=== PATIENT | male | born 1935 | race Caucasian/White ===

== ENCOUNTER 2021-12-18 08:01 | Inpatient (IN) | payer MEDICARE, BC ==
[~2021-12-18] VITALS: Ht 160 cm; Wt 72.6 kg
[2021-12-18 08:50] LABS: BASOPHILS ABSOLUTE AUTO 0.07 K/mm3 (0.00-0.23); BASOPHILS PERCENT AUTO 1 % (0-2); EOSINOPHILS ABSOLUTE AUTO 0.05 K/mm3 (0.00-0.68); EOSINOPHILS PERCENT AUTO 0 % (0-6); Hematocrit 37.8 % (37.0-53.0); Hemoglobin 12.2 g/dL (13.5-17.5); IMMATURE GRAN ABSOLUTE AUTO 0.38 K/mm3 (0.00-0.10); IMMATURE GRAN PERCENT AUTO 3 % (0-1); LYMPHOCYTES PERCENT AUTO 22 % (21-46); MONOCYTES ABSOLUTE AUTO 1.86 K/mm3 (0.16-1.47); MONOCYTES PERCENT AUTO 13 % (4-13); Mean Corpuscular HGB 30.2 pg (26.0-34.0); Mean Corpuscular HGB Conc 32.3 g/dL (31.5-36.5); Mean Corpuscular Volume 94 fL (80-100); Mean Platelet Volume 10.1 fL (9.1-12.4); NEUTROPHILS ABSOLUTE AUTO 8.97 K/mm3 (1.96-9.15); NEUTROPHILS PERCENT AUTO 62 % (41-73); Platelet Count 313 K/mm3 (150-400); RDW Coefficient Variation 13.2 % (11.7-14.2); RDW Standard Deviation 45.7 fL (35.1-46.3); Red Blood Cell Count 4.04 M/mm3 (4.30-5.90); White Blood Cell Count 14.43 K/mm3 (4.00-11.30)
[2021-12-18 09:06] LABS: Albumin, Blood 2.5 g/dL (3.4-5.0); Albumin/Globulin Ratio 0.6 (0.8-1.8); Bilirubin, Total 0.6 mg/dL (0.1-1.0); Bun/Creatinine Ratio 21.5 (12.0-20.0); Calcium, Blood 8.7 mg/dL (8.5-10.1); Creatinine, Blood 0.98 mg/dL (0.60-1.20); Globulin, Blood 4.3 g/dL (2.2-4.0); Potassium, Blood 3.9 mmol/L (3.5-5.5); Total Protein, Blood 6.8 g/dL (6.4-8.2)
[2021-12-18 09:43] LABS: Influenza A, PCR NEGATIVE (NEGATIVE); Influenza B, PCR NEGATIVE (NEGATIVE); Resp Syncytial Virus, PCR NEGATIVE (NEGATIVE); SARS-Cov-2 (COVID-19) PCR, MMC NEGATIVE (NEGATIVE)
[2021-12-18] MEDS ORDERED: FUROSEMIDE20 MG PO (10:09)
[2021-12-18] MEDS ORDERED: POTA20LUD PO (10:10)
[2021-12-18] MEDS ORDERED: LISINOPRIL 5 MG (10:10)
[2021-12-18] MEDS ORDERED: ALLO300 PO (10:11)
[2021-12-18] MEDS ORDERED: PRED5 PO (10:11)
[2021-12-18] MEDS ORDERED: ZYTIGA500 MG PO (10:12)
[2021-12-18] MEDS ORDERED: HYDROCO (10:12)
[2021-12-18] MEDS ORDERED: APAP (10:12)
[2021-12-18] MEDS ORDERED: LATANOPROST2.5 M3 BOTHEYES (10:13)
[2021-12-18 11:53] LABS: Glucose, Body Fluid 110 mg/dL; Lactate Dehydrogenase, Body Fl 322 U/L; Protein, Body Fluid 4.9 g/dL
[2021-12-18 12:06] LABS: Appearance, Body Fluid Bloody (Clear); Color, Body Fluid Red (None-Yellow)
[2021-12-18 12:07] LABS: RBC Count, Body Fluid 60000 /mm3 (0-0)
[2021-12-18 12:08] LABS: Body Fluid WBC Count 1650 /mm3 (0-999)
[2021-12-18 12:52] LABS: Total Cell Count, Body Fluid 100
--- NOTE | 2021-12-18 14:00 | NUR ---
PT ARRIVED TO MEDICAL FLOOR FROM EMERGENCY ROOM ON AN ER [facility] ACCOMPANIED BY AND FAMILY FRIEND. PT WAS TRANSFERRED FROM [facility] TO MEDICAL BED WITH SLIDE SHEET AND ASSISTANCE OF THREE STAFF. HE IS WEARING 2LPM OXYGEN VIA NASAL CANULA. PT IS A&O X4. FAMILY RECENTLY MOVED FROM [place] ABOUT TWO MONTHS AGO TO BE WITH THEIR SON KUN, WHO LIVES NEARBY. THEY LIVE INDEPENDENTLY. PT WAS DX WITH PROSTATE CANCER IN 2018. PRIOR TO THAT, HE HAD NOT BEEN HOSPITALIZED SINCE THE 1970'S WHEN HE HAD HIS GALL BLADDER REMOVED. 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 HE LIVES WITH HIS KEVIN IN THEIR OWN HOME IN [place]. HE IS INCONTINENT IN ATTENDS. REPORTS INCREASING WEAKNESS,AND DYSPNEA THE PAST FEW DAYS. HE HAS ALWAYS BEEN AN ACTIVE MAN, AND A NICK IN [place]. PT IS PLEASANT, FOLLOWS DIRECTIONS. FAMILY ORIENTED TO ROOM, AND INSTRUCTED TO USE CALL LIGHT FOR SAFETY TO REDUCE FALL RISK. WILL CONTINUE TO MONITOR.
--- NOTE | 2021-12-18 15:15 | NUR ---
RN PLACED PHONE CALL TO DR. DAMICO - THERE WERE ER ORDERS FOR NORMAL SALINE THAT WERE NOT RUNNING WHEN PT ARRIVED TO MEDICAL FLOOR. DR. DAMICO AGREES TO D/C FLUID ORDERS. DR. DAMICO WITH NO OTHER ORDERS AT THIS TIME.
--- NOTE | 2021-12-18 15:44 | NUR ---
RN PAGED RT REGARDING PULSE OXIMETRY ORDERS.
--- NOTE | 2021-12-18 19:18 | NUR ---
PT'S AT BEDSIDE. PT SLEPT MOST OF THE SHIFT. HIS KEVIN ASSISTED HIM TO EAT DINNER. HE IS INCONTINENT IN ATTENDS. REPORTS THAT PAIN IS IMPROVING FROM THORACENTESIS EARLIER, RN EDUCATED TO CALL FOR PAIN MEDICATION IF HE NEEDS IT USING THE CALL LIGHT. SON KUN AT BEDSIDE TO CHECK IN. 2LPM OXYGEN VIA NASAL CANULA. 18 GAUGE IN THE LEFT AC. TELEMETRY ON. RT HAS BEEN PAGED TO SET UP PULSE OXIMETRY. GAVE REPORT TO ONCOMING RN.
--- NOTE | 2021-12-19 04:30 | NUR ---
SHIFT UNREMARKABLE. CLIENT HAS SLEPT THROUGH SHIFT. EVENING MEDICATIONS PASSED WITHOUT DIFFICULTY AND CLIENT REPORTS HE HAS FELT MUCH BETTER SINCE THORACENTESIS WAS PERFORMED. O2 SUPPLEMENTATION RUNNING VIA NC. DOCTORS NOTE INDICATES SUSPECTED DISCHARGE THIS MORNING 12/19. CLIENT CONDITION UNCHANGED OTHERWISE. CALL LIGHT LEFT WITHIN REACH.
[2021-12-19 05:12] LABS: BASOPHILS ABSOLUTE AUTO 0.03 K/mm3 (0.00-0.23); BASOPHILS PERCENT AUTO 0 % (0-2); EOSINOPHILS PERCENT AUTO 0 % (0-6); Hematocrit 36.9 % (37.0-53.0); Hemoglobin 11.7 g/dL (13.5-17.5); IMMATURE GRAN ABSOLUTE AUTO 0.33 K/mm3 (0.00-0.10); IMMATURE GRAN PERCENT AUTO 2 % (0-1); LYMPHOCYTES ABSOLUTE AUTO 1.41 K/mm3 (0.84-5.20); LYMPHOCYTES PERCENT AUTO 8 % (21-46); MONOCYTES ABSOLUTE AUTO 1.72 K/mm3 (0.16-1.47); MONOCYTES PERCENT AUTO 10 % (4-13); Mean Corpuscular HGB 29.6 pg (26.0-34.0); Mean Corpuscular HGB Conc 31.7 g/dL (31.5-36.5); Mean Corpuscular Volume 93 fL (80-100); Mean Platelet Volume 10.4 fL (9.1-12.4); NEUTROPHILS ABSOLUTE AUTO 14.04 K/mm3 (1.96-9.15); NEUTROPHILS PERCENT AUTO 80 % (41-73); Platelet Count 318 K/mm3 (150-400); RDW Coefficient Variation 13.2 % (11.7-14.2); RDW Standard Deviation 44.8 fL (35.1-46.3); Red Blood Cell Count 3.95 M/mm3 (4.30-5.90); White Blood Cell Count 17.53 K/mm3 (4.00-11.30)
[2021-12-19 05:31] LABS: Bun/Creatinine Ratio 25.2 (12.0-20.0); Calcium, Blood 8.2 mg/dL (8.5-10.1); Creatinine, Blood 0.91 mg/dL (0.60-1.20); Magnesium, Blood 2.5 mg/dL (1.6-2.4)
--- NOTE | 2021-12-19 11:50 | NUR ---
Upon receiving a referral for spiritual care, I visit pt. Pt is lying in bed and alert. Pt's spouse, Jeannie is bedside. They tell me about pt's improvement and the plan to d/c to home today. I provide a calming presence and a blessing. Pt and Jeannie responds well and show signs of an elevated mood. I will continue to remain available.
[2021-12-19] MEDS ORDERED: Norco 5-325 Ta1 EACH PO (13:05)
[2021-12-19] MEDS ORDERED: POTA10T PO (13:06)
[2021-12-19] MEDS ORDERED: LISI5 PO (13:08)
--- NOTE | 2021-12-19 18:36 | NUR ---
SHIFT SUMMARY PATIENT ALERT AND ORIENTED BUT [place]. REQUIRES 2L O2 VIA NC AND 4L WHEN EXERTING. SEVERE VERTIGO WHEN CHANGES POSITION, REQUIRES SEVERAL MINUTES TO ACCLIMATE TO SITTING UP AND STANDING UP. SBA TO AMBULATE WITH FWW AND GAIT BELT TO TOILET. INCONTINENT OF URINE, FREQUENT WET ATTENDS. PLAN FOR DISCHARGE HOME IN AM AFTER EVAL BY PHYSICAL THERAPY FOR HOME NEEDS. WILL REQUIRE O2 AT HOME WELL NURSING AND PT. SPOUSE ATTENTIVE AT BEDSIDE. TOLERATING REGULAR DIET AND LIQUIDS.
--- NOTE | 2021-12-20 04:18 | NUR ---
SHIFT SUMMARY ADMITTED FOR RESPIRATORY FAILURE/HYPOXIA. DNR CODE. PLAN IS FOR DC HOME W/HH TO FAMILY. HOME O2 EVAL IS COMPLETED ON PREVIOUS SHIFT. HX OF PROSTATE CANCER W/METS. IS AT BEDSIDE IN ROOM. HX OF POSITIONAL VERTIGO. RIGHT SIDED PLEURAL EFFUSION FOUND IN ER, THORACENTESIS PERFORMED. HE IS A&O X3, [place]. 2 LPM O2 AT REST, 4 LPM O2 W/EXERTION
--- NOTE | 2021-12-20 18:59 | NUR ---
DISCHARGE SUMMARY PATIENT ALERT AND ORIENTED. TOLERATING DIET AND LIQUIDS. INCONTINENT IN ATTENDS. SBA WITH FWW TO TRANSFER TO CHAIR. O2 VIA NC AT 2L. [facility] SET UP HOME O2 AND PROVIDED NEW WHEELCHAIR. DISCHARGE INSTRUCTIONS GIVEN TO FAMILY. IV DC'D WNL. PATIENT LEFT UNIT AT 1845.
== END 2021-12-20 18:52 | disposition home health service (06) | DRG 189 ==
LOC: ER 08:01 → MEDS 08:02
PROVIDERS: Emergency Medicine; ADMIT Student in an Organized Health Care Education/Training Program
PROC: 0W993ZZ Drainage of Right Pleural Cavity, Percutaneous Approach (ICD-10-PCS; principal; 2021-12-19)
DX: J96.01 Acute respiratory failure with hypoxia (principal); J93.83 Other pneumothorax; J91.0 Malignant pleural effusion; C61 Malignant neoplasm of prostate; Z20.822 Contact with and (suspected) exposure to COVID-19; Z66 Do not resuscitate; I10 Essential (primary) hypertension; Z90.49 Acquired absence of other specified parts of digestive tract; Z79.52 Long term (current) use of systemic steroids; Z79.899 Other long term (current) drug therapy
CPT/HCPCS: 0241U; 32555; 36415; 71045; 80048; 80053; 82945; 83615; 83735; 83880; 84157; 84484; 85025; 87070; 87075; 87205; 88108; 88305; 88341; 88342; 89051; 93005; 93010; 94640; 94664; 94760; 94761; 94762; 96372; 96374-59; 96375-59; 97110; 97116; 97162; 97166; 97530; 99285-25; A9270; G0378; J1644; J2405; J2930; J3010; J7030; J7512

== ENCOUNTER 2021-12-30 12:19 | Emergency (ER) | payer MEDICARE, BC ==
[~2021-12-30] VITALS: Ht 160 cm; Wt 68.0 kg
[~2021-12-30 12:19] MED LIST: ALLO300 PO; APAP; FUROSEMIDE20 MG PO; HYDROCO; LATANOPROST2.5 M3 BOTHEYES; LISI5 PO; LISINOPRIL 5 MG; Norco 5-325 Ta1 EACH PO; POTA10T PO; POTA20LUD PO; PRED5 PO; ZYTIGA500 MG PO
[2021-12-30 12:48] LABS: Hematocrit 35.4 % (37.0-53.0); Hemoglobin 11.2 g/dL (13.5-17.5); Mean Corpuscular HGB 29.8 pg (26.0-34.0); Mean Corpuscular HGB Conc 31.6 g/dL (31.5-36.5); Mean Corpuscular Volume 94 fL (80-100); Mean Platelet Volume 10.3 fL (9.1-12.4); Platelet Count 255 K/mm3 (150-400); RDW Coefficient Variation 13.2 % (11.7-14.2); RDW Standard Deviation 45.1 fL (35.1-46.3); Red Blood Cell Count 3.76 M/mm3 (4.30-5.90); White Blood Cell Count 35.17 K/mm3 (4.00-11.30)
[2021-12-30 13:15] LABS: Albumin, Blood 2.2 g/dL (3.4-5.0); Albumin/Globulin Ratio 0.5 (0.8-1.8); Bilirubin, Total 0.5 mg/dL (0.1-1.0); Bun/Creatinine Ratio 21.5 (12.0-20.0); Calcium, Blood 8.3 mg/dL (8.5-10.1); Creatinine, Blood 0.84 mg/dL (0.60-1.20); Globulin, Blood 4.2 g/dL (2.2-4.0); Potassium, Blood 3.9 mmol/L (3.5-5.5); Total Protein, Blood 6.4 g/dL (6.4-8.2)
[2021-12-30 13:20] LABS: BAND PERCENT MAN 13 % (0-8); BASOPHILS PERCENT MAN 0 % (0-2); EOSINOPHILS PERCENT MAN 0 % (0-6); LYMPHOCYTES PERCENT MAN 4 % (21-46); METAMYELOCYTE PERCENT MAN 2 % (0-0); MONOCYTES PERCENT MAN 4 % (4-13); MYELOCYTE ABSOLUTE MAN 0.35 K/mm3 (0.00-0.00); MYELOCYTE PERCENT MAN 1 % (0-0); SEG NEUTROPHILS PERCENT MAN 76 % (41-73); TOTAL CELLS COUNTED 100
[2021-12-30 13:50] LABS: Source, Urine Clean Catch
[2021-12-30 13:57] LABS: Appearance, Urine Clear (Clear); Bilirubin, Urine Neg (Neg); Blood, Urine Neg (Neg); Color, Urine Yellow (P-Yellow); Glucose Qualitative, Urine Neg (Neg); Ketones, Urine Neg (Neg); Leukocyte Esterase, Urine 1+ (Neg); Nitrite, Urine Neg (Neg); Protein, Urine 2+ (Neg); Specific Gravity, Urine 1.015 (1.003-1.022); Urobilinogen, Urine 1+ (Normal)
[2021-12-30 14:11] LABS: International Normalized Ratio 0.98; Prothrombin Time Results 10.3 Sec (9.7-11.5)
[2021-12-30 14:20] LABS: Bacteria Few /hpf; Mucus Light (0-Heavy); Red Blood Cells, Urine 0-2 /hpf (0-2); Squamous Epithelial Cells Not Seen /hpf (Few)
[2021-12-30 14:35] LABS: Influenza A, PCR NEGATIVE (NEGATIVE); Influenza B, PCR NEGATIVE (NEGATIVE); Resp Syncytial Virus, PCR NEGATIVE (NEGATIVE); SARS-Cov-2 (COVID-19) PCR, MMC NEGATIVE (NEGATIVE)
== END 2021-12-30 18:13 | disposition home or self-care (01) ==
LOC: ER 12:19
PROVIDERS: Emergency Medicine
DX: J90 Pleural effusion, not elsewhere classified (principal); D72.829 Elevated white blood cell count, unspecified; R50.9 Fever, unspecified; J93.9 Pneumothorax, unspecified; Z20.822 Contact with and (suspected) exposure to COVID-19; Z79.899 Other long term (current) drug therapy
CPT/HCPCS: 0241U; 32555; 36415; 71045; 80053; 81001; 85025; 85610; 85730

== ENCOUNTER 2022-01-07 18:28 | Inpatient (IN) | payer MEDICARE, BC ==
[~2022-01-07] VITALS: Ht 162.6 cm; Wt 72.1 kg
[2022-01-07 19:20] LABS: Hematocrit 33.3 % (37.0-53.0); Hemoglobin 10.5 g/dL (13.5-17.5); Mean Corpuscular HGB 29.3 pg (26.0-34.0); Mean Corpuscular HGB Conc 31.5 g/dL (31.5-36.5); Mean Corpuscular Volume 93 fL (80-100); Mean Platelet Volume 10.2 fL (9.1-12.4); NRBC ABSOLUTE 0.09 K/mm3 (0.00-0.02); NRBC Auto 0.2 /100 WBC (0.0-0.2); Platelet Count 221 K/mm3 (150-400); RDW Coefficient Variation 13.7 % (11.7-14.2); RDW Standard Deviation 45.3 fL (35.1-46.3); Red Blood Cell Count 3.58 M/mm3 (4.30-5.90); White Blood Cell Count 38.18 K/mm3 (4.00-11.30)
[2022-01-07 19:49] LABS: Albumin, Blood 2.5 g/dL (3.4-5.0); Albumin/Globulin Ratio 0.6 (0.8-1.8); Bilirubin, Total 0.3 mg/dL (0.1-1.0); Bun/Creatinine Ratio 13.6 (12.0-20.0); Calcium, Blood 8.8 mg/dL (8.5-10.1); Creatinine, Blood 0.88 mg/dL (0.60-1.20); Globulin, Blood 4.2 g/dL (2.2-4.0); Potassium, Blood 4.7 mmol/L (3.5-5.5); Total Protein, Blood 6.7 g/dL (6.4-8.2)
[2022-01-07 19:57] LABS: BAND PERCENT MAN 4 % (0-8); BASOPHILS PERCENT MAN 0 % (0-2); EOSINOPHILS ABSOLUTE MAN 0.38 K/mm3 (0.00-0.68); EOSINOPHILS PERCENT MAN 1 % (0-6); LYMPHOCYTES % ATYPICAL MANUAL 1 % (0-0); LYMPHOCYTES ABSOLUTE MAN 3.81 K/mm3 (0.84-5.20); LYMPHOCYTES PERCENT MAN 9 % (21-46); METAMYELOCYTE ABSOLUTE MAN 0.76 K/mm3 (0.00-0.00); METAMYELOCYTE PERCENT MAN 2 % (0-0); MONOCYTES ABSOLUTE MAN 1.52 K/mm3 (0.16-1.47); MONOCYTES PERCENT MAN 4 % (4-13); MYELOCYTE ABSOLUTE MAN 3.05 K/mm3 (0.00-0.00); MYELOCYTE PERCENT MAN 8 % (0-0); NEUTROPHILS ABSOLUTE MAN 28.63 K/mm3 (1.96-9.15); SEG NEUTROPHILS PERCENT MAN 71 % (41-73); TOTAL CELLS COUNTED 100
[2022-01-07] MEDS ORDERED: BENZ100A PO (23:10)
[2022-01-07] MEDS ORDERED: CEFD300 PO (23:14)
--- NOTE | 2022-01-08 00:33 | NUR ---
PATIENT ADMITTED TO THE UNIT JUST BEFORE MIDNIGHT. AND SON ARE AT BEDSIDE AND HELP TO PROVIDE HX. STATES PATIENT HEALTHY UP TO TIME HE DEVELOPED PROSTATE CANCER NOW METS TO THE BONE, LIVER AND LUNG. IN THE LAST MONTH AND HALF HE HAS DEVELOPED PLEURAL EFFUSION THAT HAS NEEDED TO BE TAPPED TWICE NOW. LAST THORACENTESIS WAS 12/30/21 AT WHICH HE DEVELOPED A DPNEUMOTHORAX NOW RESOLVED. FAMILY REPORTS HE HAS BECOME INCREASING CONFUSED WELL, AND DOES NOT REMEMBER MINUTES LATER. HIS ABILITY TO WALK HAS BECOME LIMITED TO BEDREST OR JUST MINIMAL TRANSFERS. HE HAS BECOME INCONTIENT OF URINE AND STOOL. INTAKE HAS DIMINISHED TO FEW BITES HERE AND THERE BUT CONSTANTLY STATES HE IS HUNGRY. IN THE LAST 24 HOURS HE HAS BECOME INCREASED SOB AT WHICH FAMILY GOT CONCERNED THEREFORE BROUGHT HIM IN. LS COARSE CRACKLES ON THE RIGHT, DIM ON THE LEFT, SATS >92% ON 3L NC, COUGH IS NON-PRODUCTIVE. HR 60-70'S OCCATIONALLY WILL BE TACHY WITH MOVMEMENT OR COUGH. 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 DENIES CHEST PAIN OR DISCOMFORT. ABD DISTENDED, STATES LAST BM YESTERDAY LOOSE, BUT HAS BEEN SWITCHING FROM CONSTIPATION TO DIARRHEA DUE TO CHEMO MEDS. +1 EDEMA IN BLE. ATTENDS DRY. NO SKIN BREAKDOWN. PALE COOL TO THE TOUCH. WARMED WIHT BLANKLETS. WILL CONTINUE TO MONITOR, BED ALARM IS ON.
[2022-01-08 03:54] LABS: Hematocrit 28.8 % (37.0-53.0); Hemoglobin 9.4 g/dL (13.5-17.5); Mean Corpuscular HGB 30.3 pg (26.0-34.0); Mean Corpuscular HGB Conc 32.6 g/dL (31.5-36.5); Mean Corpuscular Volume 93 fL (80-100); Mean Platelet Volume 10.2 fL (9.1-12.4); NRBC ABSOLUTE 0.04 K/mm3 (0.00-0.02); NRBC Auto 0.1 /100 WBC (0.0-0.2); Platelet Count 175 K/mm3 (150-400); RDW Coefficient Variation 13.7 % (11.7-14.2); RDW Standard Deviation 45.3 fL (35.1-46.3); White Blood Cell Count 33.58 K/mm3 (4.00-11.30)
[2022-01-08 04:09] LABS: Albumin, Blood 2.2 g/dL (3.4-5.0); Albumin/Globulin Ratio 0.6 (0.8-1.8); Bilirubin, Total 0.6 mg/dL (0.1-1.0); Bun/Creatinine Ratio 12.5 (12.0-20.0); Calcium, Blood 8.1 mg/dL (8.5-10.1); Creatinine, Blood 0.88 mg/dL (0.60-1.20); Globulin, Blood 3.8 g/dL (2.2-4.0); Potassium, Blood 4.5 mmol/L (3.5-5.5)
[2022-01-08 04:27] LABS: BAND PERCENT MAN 10 % (0-8); BASOPHILS PERCENT MAN 0 % (0-2); EOSINOPHILS ABSOLUTE MAN 0.33 K/mm3 (0.00-0.68); EOSINOPHILS PERCENT MAN 1 % (0-6); LYMPHOCYTES ABSOLUTE MAN 1.34 K/mm3 (0.84-5.20); LYMPHOCYTES PERCENT MAN 4 % (21-46); MONOCYTES ABSOLUTE MAN 0.33 K/mm3 (0.16-1.47); MONOCYTES PERCENT MAN 1 % (4-13); MYELOCYTE ABSOLUTE MAN 0.67 K/mm3 (0.00-0.00); MYELOCYTE PERCENT MAN 2 % (0-0); NEUTROPHILS ABSOLUTE MAN 30.89 K/mm3 (1.96-9.15); SEG NEUTROPHILS PERCENT MAN 82 % (41-73); TOTAL CELLS COUNTED 100
--- NOTE | 2022-01-08 05:57 | NUR ---
SHIFT SUMMARY: PT ADMITTED FOR INCREASE IN SOB, HAS RECURRENT PLEURAL EFFUSION NEEDING THORACENTESIS. HX OF PROSTATES CA WITH METS TO THE LIVER, BONE AND LUNGS. PER HAS BEEN DECLINING FOR SEVERAL MONTHS EVIDENCE BY POOR INTAKE (ONLY BITES), BEDBOUND, INCONTIENCE, AND INCREASING CONFUSION IN THE LAST MONTH. ABLE TO ANSWER SIMPLE QUESTIONS BUT WILL FREQUENTLY ASK REPEATED QUESTIONS, FORGETS SAFETY. BED ALARM ON. LS COARSE CRACKLES ON THE RIGHT AND DIM ON THE LEFT, AT BASE O2 OF 3L WITH SATS >92%. CHRONIC NON-PRODUCTIVE COUGH. SINUS WIHT BBB ON MONITOR WITH SOME ST ELEVATION RAISING CONCERN. REPEAT EKG UNCHANGED FROM ER. DOCTOR MADE AWARE, NO NEW ORDERS OR CONCERNS WERE NOTED HE WAS ASYPTOMATIC. VS REMAINED STABLE. DISTENDED ABD, POOR APPETITE, CHEMO CAUSES DIARRHEA VS CONSTIPATION PER . DISCUSSED WITH FAMILY POSSIBLE CONSULT FOR PLEUR-X DRAINAGE, FAMILY PLANS TO RETURN TODAY FOR CONSULT. CONSULT CALLED TO DR. MORENO. BED ALARM IS ON, CALL LIGHT IS IN REACH BUT PATIENT DOES NOT USE DUE TO CONFUSION AND MEMORY DEFICIT. WILL CONTINUE TO MONITOR.
--- NOTE | 2022-01-08 11:41 | NUR ---
ASSUMED CARE OF PT AT 0700. PT HAS BEEN RESTING COMFORTABLY WITH NO COMPLAINTS, SEE DOCUMENTED VS AND ASSESSMENT. REPORT CALLED TO MELISSA RN, PT WILL BE TRANSFERRED TO ROOM 329 POST PLEUREX PLACEMENT. ALL BELONGINGS TRANSFERRED TO RM 329.
--- NOTE | 2022-01-08 11:45 | NUR ---
Attempted to visit pt this am. He was being transferred to pre-op for placement of pleurex drain. Plan to visit when able.
--- NOTE | 2022-01-08 15:06 | NUR ---
RN NOTE PT TRANSFERED FROM OR TO MEDICAL UNIT AT 1445HRS. PT SLEEPING BUT AROUSABLE. DENIES ANY PAIN. ORIENTATED TO NAME BUT NOT TO DATE OR SITUATION. SON AND AT BEDSIDE WHEN PT ARRIVED. PT HAS RATTLING DRY FREQUENT COUGH, O2 90% ON 4L NC. RLL QUIET INSP WHEEZE, GOOD AIRFLOW HEARD THROUGHOUT R AND LEFT LUNGS. PLEUROVAC PIGTAIL DRAIN CAPPED AND TAPED IN PLACE R CHEST. REPORT OF 1600CC OUTPUT IN PROCEDURE. DR ALMANZA INFORMED OF PT ARRIVAL. NO FURTHER DRAINAGE TODAY FROM PLEURAX PER DR ALMANZA AND DIET ORDER ENTERED. BED LOW, CALL LIGHT IN REACH. BED ALARM ON.
--- NOTE | 2022-01-08 16:48 | NUR ---
SHIFT SUMMARY SEE PRIOR NOTE. MR HANCOCK IS SLEEPY, EASILY AROUSABLE AFTER PLEURAX PLACEMENT TODAY. AT BEDSIDE. DRESSING OVER PIGTAIL CAPPED DRAIN IS C,D,I. COUGHING THAT WAS PERSISTANT WHEN HE FIRST ARRIVED HAS SLOWED DOWN TO INTERMITTANT NOW. HE DENIES ANY PAIN. HAS NOT VOIDED SINCE TRANSFER TO MEDICAL UNIT. BLADDER SCAN DONE AND MINIMAL. TURNED ONTO HIS SIDE, SKIN INTACT TO HIS BACK AND BUTTOCKS. BED LOW, CALL LIGHT IN REACH. BED ALARM ON.
--- NOTE | 2022-01-08 17:48 | NUR ---
RN NOTE CALL FROM PREP MANAGER AND STRIPS SENT FROM PREP MANAGER FOR ST ELEVATION. PT ASYMPTOMATIC AND RESTING. DR ALMANZA CALLED. ORDER FOR D/C TELEMETRY.
--- NOTE | 2022-01-08 19:20 | NUR ---
RN NOTE PT MORE AWAKE, HIS HELPED HIM TO EAT DINNER AND SAID HE HAD A GOOD APPETITE. PT SAID HE IS COMFORTABLE, NO PAIN. IS STAYING WITH HIM, BED SET UP IN PT'S ROOM.
[2022-01-09 05:49] LABS: Hematocrit 27.2 % (37.0-53.0); Hemoglobin 8.6 g/dL (13.5-17.5); Mean Corpuscular HGB 29.4 pg (26.0-34.0); Mean Corpuscular HGB Conc 31.6 g/dL (31.5-36.5); Mean Corpuscular Volume 93 fL (80-100); Mean Platelet Volume 10.3 fL (9.1-12.4); NRBC ABSOLUTE 0.02 K/mm3 (0.00-0.02); NRBC Auto 0.1 /100 WBC (0.0-0.2); Platelet Count 163 K/mm3 (150-400); RDW Coefficient Variation 13.8 % (11.7-14.2); RDW Standard Deviation 45.1 fL (35.1-46.3); Red Blood Cell Count 2.93 M/mm3 (4.30-5.90); White Blood Cell Count 27.78 K/mm3 (4.00-11.30)
--- NOTE | 2022-01-09 05:51 | NUR ---
TALHA GROSSMAN, RESTED WELL THE SECOND HALF OF SHIFT, WARM BLANKET TO RIGHT KNEE FOR PT C/O ACHING, HE COULD POSSIBLY BENEFIT FROM TYLENOL PRN HE SAYS IT'S WHAT HE TAKES AT HOME FOR HIS KNEES, CALL LIGHT IN REACH, SPOUSE AT BEDSIDE, VSS
[2022-01-09 06:19] LABS: Bun/Creatinine Ratio 13.4 (12.0-20.0); Calcium, Blood 7.9 mg/dL (8.5-10.1); Creatinine, Blood 0.97 mg/dL (0.60-1.20); Potassium, Blood 4.4 mmol/L (3.5-5.5)
[2022-01-09 06:20] LABS: BAND PERCENT MAN 2 % (0-8); BASOPHILS ABSOLUTE MAN 0.27 K/mm3 (0.00-0.23); BASOPHILS PERCENT MAN 1 % (0-2); EOSINOPHILS PERCENT MAN 0 % (0-6); LYMPHOCYTES ABSOLUTE MAN 0.55 K/mm3 (0.84-5.20); LYMPHOCYTES PERCENT MAN 2 % (21-46); MONOCYTES ABSOLUTE MAN 1.11 K/mm3 (0.16-1.47); MONOCYTES PERCENT MAN 4 % (4-13); MYELOCYTE ABSOLUTE MAN 1.11 K/mm3 (0.00-0.00); MYELOCYTE PERCENT MAN 4 % (0-0); NEUTROPHILS ABSOLUTE MAN 24.72 K/mm3 (1.96-9.15); SEG NEUTROPHILS PERCENT MAN 87 % (41-73); TOTAL CELLS COUNTED 100
--- NOTE | 2022-01-09 10:47 | NUR ---
PLEUREX DRAIN LOCATED IN R CHEST WAS DRAINED TODAY AT 0930 UTILIZING PLEURX SYSTEM. 680 MLS OF DARK [place] FLUID DRAINED. PT TOLERATED PROCEDURE WELL.
--- NOTE | 2022-01-09 12:37 | NUR ---
pt alert tolerated procedure. He will discharge today. Bedside nurse reviewed pleurex and obtained home kit. Pt has [employer]. Review of order needed for care and drainage.
[2022-01-09] MEDS ORDERED: Norco 5-325 Ta1 EACH PO (13:16)
[2022-01-09] MEDS ORDERED: SENN187 PO (13:17)
[2022-01-09] MEDS ORDERED: LEVFLO500 PO (14:31)
--- NOTE | 2022-01-09 15:35 | NUR ---
01/09/22 1535 Damaris Ramirez VERIFICATIONS: EDIT CHART.
--- NOTE | 2022-01-09 15:39 | NUR ---
DISCHARGE SUMMARY: PT DISCHARGED HOME WITH HOME HEALTH SERVICES TO RESUME. EDUCATED COURT WITH DEMONSTRATION TO USE PLEURX DRAINAGE SYSTEM. VU. GAVE PLEURX DRAIN SYSTEM PACKAGE AND FOLDER WITH INFORMATION TO . SON CAME LATER AND DISCUSSED DISCHARGE INSTRUCTIONS AND MEDICATIONS WITH SON. SON VU. PT TRANSFERRED TO VIA GB AND 2 PERSON TO CAR. MAX ASSIST. COMMUNITY ASSIST NUMBER GIVEN TO SON TO GET ASSISTANCE IF NEEDED INTO THE HOME. BELONGINGS PACKED UP ANMD SENT WITH PT.
== END 2022-01-09 14:56 | disposition home health service (06) | DRG 722 ==
LOC: ER 18:28 → MEDS 22:31 → PCU 22:31 → MEDS 01-08 11:40
PROVIDERS: Emergency Medicine; Internal Medicine; Surgery; ADMIT Internal Medicine
PROC: 0W9930Z Drainage of Right Pleural Cavity with Drainage Device, Percutaneous Approach (ICD-10-PCS; principal; 2022-01-08 12:30)
DX: C61 Malignant neoplasm of prostate (principal); J18.9 Pneumonia, unspecified organism; J91.0 Malignant pleural effusion; J96.11 Chronic respiratory failure with hypoxia; J93.83 Other pneumothorax; I10 Essential (primary) hypertension; Z66 Do not resuscitate; C67.9 Malignant neoplasm of bladder, unspecified; Z92.21 Personal history of antineoplastic chemotherapy; Z74.01 Bed confinement status; Z79.899 Other long term (current) drug therapy; Z79.01 Long term (current) use of anticoagulants; Z79.52 Long term (current) use of systemic steroids; Z79.891 Long term (current) use of opiate analgesic; Z79.811 Long term (current) use of aromatase inhibitors; Z90.49 Acquired absence of other specified parts of digestive tract
CPT/HCPCS: 36415; 71045; 71046; 80048; 80053; 84484; 85025; 93005; 93010; 94760; 99285-25; A9270; C1729; J0690; J2405; J2704; J3010; J7120

== ENCOUNTER 2022-01-09 22:51 | Inpatient (IN) | payer MEDICARE, BC ==
[~2022-01-09 22:51] MED LIST changes: +BENZ100A PO; +CEFD300 PO; +LEVFLO500 PO; +SENN187 PO
== END 2022-01-11 06:48 | DRG 951 ==
DX: Z51.5 Encounter for palliative care (principal); J96.21 Acute and chronic respiratory failure with hypoxia; J69.0 Pneumonitis due to inhalation of food and vomit; J91.0 Malignant pleural effusion; C61 Malignant neoplasm of prostate; I95.9 Hypotension, unspecified; C67.9 Malignant neoplasm of bladder, unspecified; Z66 Do not resuscitate; I10 Essential (primary) hypertension; E79.0 Hyperuricemia without signs of inflammatory arthritis and tophaceous disease; E88.09 Other disorders of plasma-protein metabolism, not elsewhere classified; R73.9 Hyperglycemia, unspecified; D72.829 Elevated white blood cell count, unspecified; Z79.01 Long term (current) use of anticoagulants; Z79.899 Other long term (current) drug therapy; Z79.811 Long term (current) use of aromatase inhibitors; Z90.49 Acquired absence of other specified parts of digestive tract; Z79.891 Long term (current) use of opiate analgesic; Q79.8 Other congenital malformations of musculoskeletal system; Z97.8 Presence of other specified devices; Z79.2 Long term (current) use of antibiotics; Z92.21 Personal history of antineoplastic chemotherapy